=== PATIENT | male | born 1960 | race Hispanic/Latino ===

== ENCOUNTER 2019-08-23 15:14 | Emergency (ER) | payer OTHER ==
[2019-08-23 16:05] LABS: APPEARANCE,URINE Clear (CLEAR); BILIRUBIN,URINE Negative (NEGATIVE); COLOR,URINE Yellow (YELLOW); GLUCOSE, URINE (UA) Negative (NEGATIVE); KETONES,URINE Negative (NEGATIVE); LEUKOCYTE ESTERASE ,URINE Trace (NEGATIVE); NITRATE,URINE Negative (NEGATIVE); OCCULT BLOOD,URINE Negative (NEGATIVE); PROTEIN,URINE POS 2+ mg/dL (NEGATIVE)
[2019-08-23] MEDS ORDERED: METHYLPREDNISOLONE SOD SUCC 40MG/ML 1ML ONE (16:12)
[2019-08-23 16:13] LABS: BACTERIA,URINE Rare /HPF (None Seen); RBC,URINE None Seen /HPF (0-1); SQUAMOUS EPITHELIAL CELL,UR 0-2 /HPF (0-2); WBC,URINE 0-1 /HPF (0-1)
[2019-08-23] MEDS ORDERED: SODIUM CHLORIDE 0.9% 1000ML 1,000 ML IV ONE ×2 (16:13→19:11)
[2019-08-23 16:24] LABS: BASOPHILS % (AUTO) 0.5 % (0.0-5.0); EOSINOPHILS % (AUTO) 1.4 % (0.0-8.0); LYMPHOCYTES % (AUTO) 12.2 % (21.0-51.0); MEAN CORPUSCULAR HEMOGLOBIN 28.5 pg (27.0-33.0); MEAN CORPUSCULAR HGB CONC 33.5 g/dL (32.0-36.0); MONOCYTES % (AUTO) 6.3 % (3.0-13.0); NEUTROPHILS % (AUTO) 79.6 % (40.0-77.0); PLATELET COUNT (AUTO) 302 K/uL (130-400); RED BLOOD CELL COUNT(AUTO) 5.29 MIL/uL (4.50-6.20); RED CELL DISTRIBUTION WIDTH 15.2 % (11.0-15.5); WHITE BLOOD COUNT (AUTO) 13.6 K/uL (4.8-10.8)
[2019-08-23 16:37] LABS: INR 1.04 (0.85-1.15); PARTIAL THROMBOPLASTIN TIME 31.7 SEC (26.3-35.5); PROTHROMBIN TIME 10.9 SEC (9.6-11.6)
[2019-08-23 16:53] LABS: CARBON DIOXIDE 21 mmol/L (21-32); CHLORIDE 103 mmol/L (101-111); CREATININE 1.4 mg/dL (0.5-1.5); GLOMERULAR FILTR. RATE CALC 55 mL/min (>60); GLUCOSE,RANDOM 158 mg/dL (70-105); POTASSIUM 3.4 mmol/L (3.5-5.1); SODIUM SERUM 140 mmol/L (136-145); UREA NITROGEN, BLOOD 16 mg/dL (7-18)
[2019-08-23 17:03] LABS: ALANINE AMINOTRANSFERASE 23 U/L (12-78); ASPARTATE AMINOTRANSFERASE 32 U/L (10-37); BILIRUBIN,TOTAL 0.4 mg/dL (0.2-1.0); CREATINE KINASE, TOTAL 345 U/L (21-232); MYOGLOBIN 102 ng/mL (10-92); TROPONIN I < 0.04 ng/mL (0.00-0.06)
[2019-08-23 21:14] LABS: CREATININE 1.3 mg/dL (0.5-1.5); POTASSIUM 4.4 mmol/L (3.5-5.1)
== END 2019-08-23 21:33 | disposition home or self-care (01) ==
LOC: EDH 15:14
DX: T63.441A Toxic effect of venom of bees, accidental (unintentional), initial encounter (principal); E86.0 Dehydration; Y92.89 Other specified places as the place of occurrence of the external cause
CPT/HCPCS: 36415; 71045; 80048; 80053; 81001; 82550 ×2; 83605 ×3; 83874; 84145; 84484; 85025; 85610; 85730; 87040 ×2; 87088; 87804 ×2; 93005; 96361; 96374; 99285; J2920; J7030 ×2

== ENCOUNTER → 2021-08-25 | Outpatient (CLI) | payer OTHER | END | disposition home or self-care (01) | LOC: SHCH 08:43 | PROVIDERS: ATTEND Internal Medicine Cardiovascular Disease | DX: I08.1 Rheumatic disorders of both mitral and tricuspid valves (principal); G47.33 Obstructive sleep apnea (adult) (pediatric); R55 Syncope and collapse; I70.0 Atherosclerosis of aorta | CPT/HCPCS: 93306 ==

== ENCOUNTER → 2023-06-19 | Outpatient (CLI) | payer OTHER | END | disposition home or self-care (01) | LOC: LAB 15:12 | PROVIDERS: ATTEND Student in an Organized Health Care Education/Training Program | DX: L72.9 Follicular cyst of the skin and subcutaneous tissue, unspecified (principal) | CPT/HCPCS: 87070; 87076; 87205 ==

== ENCOUNTER → 2023-07-30 | Outpatient (CLI) | payer OTHER | END | disposition home or self-care (01) | LOC: LAB 16:36 | PROVIDERS: ATTEND Student in an Organized Health Care Education/Training Program | DX: L02.415 Cutaneous abscess of right lower limb (principal) | CPT/HCPCS: 87070; 87076; 87205 ==

== ENCOUNTER 2023-08-30 07:24 | Day surgery (SDC) | payer OTHER ==
[2023-08-28 11:15] LABS: BASOPHILS # (AUTO) 0.06 K/uL (0.00-0.20); BASOPHILS % (AUTO) 0.7 % (0.0-5.0); EOSINOPHILS # (AUTO) 0.25 K/uL (0.00-0.70); EOSINOPHILS % (AUTO) 2.9 % (0.0-8.0); HEMATOCRIT 44.1 % (42-54); IMMATURE GRANULOCYTE ABSOLUTE 0.04 K/uL (0-1); LYMPHOCYTES # (AUTO) 1.3 K/uL (1.0-4.8); LYMPHOCYTES % (AUTO) 14.5 % (21.0-51.0); MEAN CORPUSCULAR HEMOGLOBIN 27.8 pg (27.0-33.0); MEAN CORPUSCULAR HGB CONC 31.3 g/dL (32.0-36.0); MEAN CORPUSCULAR VOLUME 88.9 fL (79-99); MONOCYTES # (AUTO) 0.6 K/uL (0.1-1.0); MONOCYTES % (AUTO) 6.9 % (3.0-13.0); NEUTROPHILS # (AUTO) 6.5 K/uL (1.8-7.7); NEUTROPHILS % (AUTO) 74.5 % (40.0-77.0); PLATELET COUNT (AUTO) 224 K/uL (130-400); RED BLOOD CELL COUNT(AUTO) 4.96 MIL/uL (4.50-6.20); WHITE BLOOD COUNT (AUTO) 8.7 K/uL (4.8-10.8)
[2023-08-28 11:30] LABS: ALBUMIN 3.5 g/dL (3.5-5.0); CREATININE 1.1 mg/dL (0.5-1.5); POTASSIUM 4.5 mmol/L (3.5-5.1)
[2023-08-28 11:39] VITALS: BP 142/70; PULSE 68; RESP 18
[2023-08-28 12:19] LABS: ERYTHROCYTE SEDIMENTATION RATE 16 MM/HR (0-20)
[~2023-08-30] VITALS: Ht 175.3 cm; Wt 116.0 kg
[2023-08-30] VITALS (18 sets, daily range): BP systolic 87–148; BP diastolic 43–80; PULSE 66–80; RESP 14–18
[~2023-08-30 07:24] MED LIST: ALLO100T PO; LEVO50CA4 PO; LEVO75CA5 PO; LOSA25TA41 PO
[2023-08-30] MEDS ORDERED: CEFAZOLIN SODIUM 2 GM VIAL ONE (08:00)
[2023-08-30] MEDS ORDERED: LACTATED RINGERS 1000ML 1,000 ML IV ONE (08:00)
[2023-08-30] MEDS ORDERED: DEXAMETHASONE SOD PHOSPHATE 10MG/ML 1ML VIAL ONE (08:52)
[2023-08-30] MEDS ORDERED: ONDANSETRON 4MG INJ ONE (08:52)
[2023-08-30] MEDS ORDERED: NEOSTIGMINE 5MG/5ML SYR IV ONE (08:52)
[2023-08-30] MEDS ORDERED: LIDOCAINE PF 100MG/5ML (2%) SYRINGE 5ML ONE (08:52)
[2023-08-30] MEDS ORDERED: GLYCOPYRROLATE 1 MG/5 ML SYRINGE ONE (08:52)
[2023-08-30] MEDS ORDERED: SUCCINYLCHOLINE CHLORIDE 20 MG/ML 10 ML VIAL ONE (08:52)
[2023-08-30] MEDS ORDERED: PROPOFOL 10 MG/ML 20ML VIAL IV ONE ×2 (08:52→09:16)
[2023-08-30] MEDS ORDERED: ROCURONIUM 10MG/1ML SYR 10 MG/ML ML ONE (08:53)
[2023-08-30] MEDS ORDERED: FENTANYL CITRATE PF 50 MCG/1 ML 5ML AMP IV ONE ×2 (08:54→09:57)
[2023-08-30] MEDS ORDERED: CEFAZOLIN SODIUM 2 GM VIAL IVPB ONE (09:26)
[2023-08-30] MEDS ORDERED: BUPIVACAINE/PF 0.5% 30ML VIAL IV ONE (09:33)
[2023-08-30] MEDS ORDERED: EPHEDRINE SULFATE 50 MG/ML AMPULE ONE (09:41)
[2023-08-30] MEDS ORDERED: MIDAZOLAM HCL 1 MG/ML 2ML VIAL ONE (09:56)
[2023-08-30] MEDS ORDERED: BUPIVACAINE/PF 0.5% 30ML VIAL ONE (10:05)
[2023-08-30] MEDS ORDERED: MEPERIDINE-PF 25 MG/ML SYG ONE (10:06)
[2023-08-30] MEDS ORDERED: KETOROLAC 30MG VIAL (30MG/ML) ONE (10:11)
[2023-08-30] MEDS ORDERED: ACET-2079 PO (10:28)
[2023-08-30] MEDS ORDERED: FENTANYL CITRATE PF 50 MCG/1 ML 2ML VIAL ONE (10:45)
[2023-08-30] MEDS ORDERED: MORPHINE 2 MG SYG ONE (10:53)
== END 2023-08-30 12:10 | disposition home or self-care (01) ==
LOC: DAH 07:24
PROVIDERS: ATTEND Student in an Organized Health Care Education/Training Program
DX: L02.415 Cutaneous abscess of right lower limb (principal); T84.59XA Infection and inflammatory reaction due to other internal joint prosthesis, initial encounter; E66.01 Morbid (severe) obesity due to excess calories; E03.9 Hypothyroidism, unspecified; M10.9 Gout, unspecified; E78.5 Hyperlipidemia, unspecified; G47.33 Obstructive sleep apnea (adult) (pediatric); Z79.899 Other long term (current) drug therapy; Z98.890 Other specified postprocedural states; Z90.49 Acquired absence of other specified parts of digestive tract; Z82.49 Family history of ischemic heart disease and other diseases of the circulatory system; Z79.82 Long term (current) use of aspirin; Z68.36 Body mass index [BMI] 36.0-36.9, adult; X58.XXXA Exposure to other specified factors, initial encounter
CPT/HCPCS: 93005; 82040; 80048; 85025; 85651; 84134; 86140; 36415; 11042; 87070 ×2; 87076 ×2; A4663; J7120; J3010 ×3; J3490 ×4; J1100; J2710; J0330; J2270; J2001; J2250; J2704 ×2; J2405; J1885; J2175; J0690 ×2; A4649; A4930 ×2; A4215; A4223; A4222; A4221

== ENCOUNTER → 2023-09-09 | Outpatient (CLI) | payer OTHER ==
[~2023-09-09] MED LIST changes: +ACET-2079 PO; +LIDOCAINE HCL 4% LTA SOL 4 ML VIAL TP ONE
== END | disposition home or self-care (01) ==
LOC: WHH 09:15
PROVIDERS: ATTEND Nurse Practitioner Family
DX: T81.89XA Other complications of procedures, not elsewhere classified, initial encounter (principal); S81.801A Unspecified open wound, right lower leg, initial encounter; L97.112 Non-pressure chronic ulcer of right thigh with fat layer exposed; L02.415 Cutaneous abscess of right lower limb; I10 Essential (primary) hypertension; M10.9 Gout, unspecified; E03.9 Hypothyroidism, unspecified; E78.5 Hyperlipidemia, unspecified; E66.8 Other obesity; Z68.38 Body mass index [BMI] 38.0-38.9, adult; Z90.49 Acquired absence of other specified parts of digestive tract; Z79.899 Other long term (current) drug therapy; X58.XXXA Exposure to other specified factors, initial encounter; Y93.89 Activity, other specified; Y92.89 Other specified places as the place of occurrence of the external cause; Y99.8 Other external cause status; Y83.8 Other surgical procedures as the cause of abnormal reaction of the patient, or of later complication, without mention of misadventure at the time of the procedure
CPT/HCPCS: 87070; G0463; A6248; A4450

== ENCOUNTER → 2023-09-23 | Outpatient (CLI) | payer OTHER | END | disposition home or self-care (01) | LOC: WHH 08:16 | PROVIDERS: ATTEND Nurse Practitioner Family | DX: T81.89XD Other complications of procedures, not elsewhere classified, subsequent encounter (principal); L97.112 Non-pressure chronic ulcer of right thigh with fat layer exposed; L02.415 Cutaneous abscess of right lower limb; S81.801D Unspecified open wound, right lower leg, subsequent encounter; I10 Essential (primary) hypertension; M10.9 Gout, unspecified; E03.9 Hypothyroidism, unspecified; E78.5 Hyperlipidemia, unspecified; E66.8 Other obesity; Z68.38 Body mass index [BMI] 38.0-38.9, adult; Z90.49 Acquired absence of other specified parts of digestive tract; Z79.899 Other long term (current) drug therapy; X58.XXXD Exposure to other specified factors, subsequent encounter; Y83.8 Other surgical procedures as the cause of abnormal reaction of the patient, or of later complication, without mention of misadventure at the time of the procedure | CPT/HCPCS: G0463; A6021; A4450 ==

== ENCOUNTER 2024-02-14 06:10 | Day surgery (SDC) | payer OTHER ==
[2024-02-13 11:55] LABS: BASOPHILS # (AUTO) 0.08 K/uL (0.00-0.20); BASOPHILS % (AUTO) 0.8 % (0.0-5.0); EOSINOPHILS # (AUTO) 0.24 K/uL (0.00-0.70); EOSINOPHILS % (AUTO) 2.5 % (0.0-8.0); HEMATOCRIT 44.3 % (42-54); IMMATURE GRANULOCYTE ABSOLUTE 0.04 K/uL (0-1); LYMPHOCYTES # (AUTO) 1.3 K/uL (1.0-4.8); LYMPHOCYTES % (AUTO) 13.8 % (21.0-51.0); MEAN CORPUSCULAR HEMOGLOBIN 27.8 pg (27.0-33.0); MEAN CORPUSCULAR HGB CONC 32.1 g/dL (32.0-36.0); MEAN CORPUSCULAR VOLUME 86.7 fL (79-99); MONOCYTES # (AUTO) 0.6 K/uL (0.1-1.0); NEUTROPHILS # (AUTO) 7.3 K/uL (1.8-7.7); NEUTROPHILS % (AUTO) 76.5 % (40.0-77.0); PLATELET COUNT (AUTO) 238 K/uL (130-400); RED BLOOD CELL COUNT(AUTO) 5.11 MIL/uL (4.50-6.20); WHITE BLOOD COUNT (AUTO) 9.5 K/uL (4.8-10.8)
[2024-02-13 12:02] LABS: INR 0.96 (0.85-1.15); PROTHROMBIN TIME 11.4 SEC (9.6-11.6)
[2024-02-13 12:04] LABS: PARTIAL THROMBOPLASTIN TIME 32.9 SEC (26.3-35.5)
[2024-02-13 12:07] LABS: ALBUMIN 3.6 g/dL (3.5-5.0); CREATININE 1.1 mg/dL (0.5-1.3); POTASSIUM 4.2 mmol/L (3.5-5.1)
[2024-02-13 12:30] VITALS: BP 147/75; PULSE 64; RESP 18
[2024-02-13 13:25] LABS: ERYTHROCYTE SEDIMENTATION RATE 13 MM/HR (0-20)
[2024-02-14] VITALS (24 sets, daily range): BP systolic 103–145; BP diastolic 51–74; PULSE 64–85; RESP 12–18
[~2024-02-14] VITALS: Ht 175.3 cm; Wt 113.9 kg
[~2024-02-14 06:10] MED LIST changes: -ACET-2079 PO; +AEC81 PO; +ASCO500C18 PO; +CHOL2000 PO; -LIDOCAINE HCL 4% LTA SOL 4 ML VIAL TP ONE; +PRAV40TA3 PO; +ZINC30TA2 PO
[2024-02-14] MEDS ORDERED: SUCCINYLCHOLINE CHLORIDE 20 MG/ML 10 ML VIAL ONE (06:50)
[2024-02-14] MEDS ORDERED: LIDOCAINE PF 100MG/5ML (2%) SYRINGE 5ML ONE (06:50)
[2024-02-14] MEDS ORDERED: ONDANSETRON 4MG INJ ONE ×2 (06:51→07:51)
[2024-02-14] MEDS ORDERED: GLYCOPYRROLATE 0.2 MG/ML 5 ML VIAL ONE (06:51)
[2024-02-14] MEDS ORDERED: DEXAMETHASONE SOD PHOSPHATE 10MG/ML 1ML VIAL ONE (06:51)
[2024-02-14] MEDS ORDERED: NEOSTIGMINE METHYLSULFATE 1MG/ML IV ONE (06:52)
[2024-02-14] MEDS ORDERED: MIDAZOLAM HCL 1 MG/ML 2ML VIAL ONE (06:52)
[2024-02-14] MEDS ORDERED: FENTANYL CITRATE PF 50 MCG/1 ML 2ML VIAL ONE ×4 (06:52→11:20)
[2024-02-14] MEDS ORDERED: ROCURONIUM BROMIDE 10MG/1ML 5ML VL ONE (06:52)
[2024-02-14] MEDS ORDERED: PROPOFOL 10 MG/ML 20ML VIAL IV ONE ×2 (06:52→07:33)
[2024-02-14] MEDS ORDERED: ROPIVACAINE 0.5% 5MG/ML 30ML ONE (06:53)
[2024-02-14] MEDS: LACTATED RINGERS 1000ML 1,000 ML IV ONE (07:00)
[2024-02-14] MEDS ORDERED: TRANEXAMIC ACID 1000MG/10ML ONE (07:11)
[2024-02-14] MEDS: TRANEXAMIC ACID 1000MG/10ML ONE (07:51)
[2024-02-14] MEDS: CEFAZOLIN SODIUM 2 GM VIAL ONE (08:00)
[2024-02-14] MEDS ORDERED: EPHEDRINE SULFATE 50 MG/ML AMPULE ONE (08:25)
[2024-02-14] MEDS ORDERED: DOCU-116 PO (11:41)
[2024-02-14] MEDS ORDERED: HYDR-4060 PO (11:41)
[2024-02-14] MEDS ORDERED: GABA-529 PO (11:41)
[2024-02-14] MEDS ORDERED: LEVO-70 PO (11:41)
[2024-02-14] MEDS ORDERED: ASPI-1012 PO (11:41)
[2024-02-14] MEDS ORDERED: CYCL5TAB PO (11:41)
== END 2024-02-14 16:30 | disposition home or self-care (01) ==
LOC: DAH 06:10
PROVIDERS: ATTEND Student in an Organized Health Care Education/Training Program
DX: T84.84XA Pain due to internal orthopedic prosthetic devices, implants and grafts, initial encounter (principal); Z20.822 Contact with and (suspected) exposure to COVID-19; L02.415 Cutaneous abscess of right lower limb; G47.33 Obstructive sleep apnea (adult) (pediatric); M10.9 Gout, unspecified; E66.01 Morbid (severe) obesity due to excess calories; E03.9 Hypothyroidism, unspecified; E78.5 Hyperlipidemia, unspecified; Z79.82 Long term (current) use of aspirin; Z98.890 Other specified postprocedural states; Z90.49 Acquired absence of other specified parts of digestive tract; Z82.49 Family history of ischemic heart disease and other diseases of the circulatory system; Z79.01 Long term (current) use of anticoagulants; Z79.899 Other long term (current) drug therapy; Z68.36 Body mass index [BMI] 36.0-36.9, adult; Y83.8 Other surgical procedures as the cause of abnormal reaction of the patient, or of later complication, without mention of misadventure at the time of the procedure
CPT/HCPCS: 82040; 80048; 85025; 85610; 85730; 85651; 84134; 86140; 36415; 87641; 64447; 73552; 20680; 87070 ×2; 87076 ×2; 87205 ×2; A4663; J7120 ×2; J3010 ×4; J3490 ×5; J1100; J0330; J2001; J2250; J2704 ×2; J2405 ×2; J2710; J2795; J0690; A6223; A4649 ×3; A4930; A5120; A4215; A4223; A4222; A4221; A6450

== ENCOUNTER 2024-03-12 13:49 | Emergency (ER) | payer OTHER ==
[~2024-03-12] VITALS: Ht 175.3 cm; Wt 116.1 kg
[~2024-03-12 13:49] MED LIST changes: -AEC81 PO; +ASPI-1012 PO; +CYCL5TAB PO; +DOCU-116 PO; +GABA-529 PO; +HYDR-4060 PO; +LEVO-70 PO
[2024-03-12 15:06] LABS: INR 0.96 (0.85-1.15); PROTHROMBIN TIME 11.4 SEC (9.6-11.6)
[2024-03-12 15:08] LABS: PARTIAL THROMBOPLASTIN TIME 34.5 SEC (26.3-35.5)
[2024-03-12 15:16] LABS: CREATININE 1.3 mg/dL (0.5-1.3); POTASSIUM 3.9 mmol/L (3.5-5.1)
[2024-03-12 15:21] LABS: ALBUMIN 3.5 g/dL (3.5-5.0); BILIRUBIN,TOTAL 0.6 mg/dL (0.2-1.0); TOTAL PROTEIN, SERUM 7.8 g/dL (6.0-8.3)
[2024-03-12] MEDS: KETOROLAC 15MG/ML VIAL (15MG/ML) IV ONE (15:23)
[2024-03-12] MEDS: 0.9%NACL 1000ML 1,000 ML IV ONE (15:23)
[2024-03-12 15:35] LABS: APPEARANCE,URINE CLOUDY (CLEAR); BILIRUBIN,URINE NEGATIVE (NEGATIVE); COLOR,URINE BROWN (YELLOW); GLUCOSE, URINE (UA) NEGATIVE (NEGATIVE); KETONES,URINE NEGATIVE (NEGATIVE); LEUKOCYTE ESTERASE ,URINE 75 Leu/uL (NEGATIVE); NITRATE,URINE NEGATIVE (NEGATIVE); OCCULT BLOOD,URINE LARGE (NEGATIVE); PROTEIN,URINE 200 mg/dL (NEGATIVE); UROBILINOGEN,URINE 0.2 mg/dL (0.2-1.0)
[2024-03-12 15:36] LABS: ADD UA MICROSCOPIC YES
[2024-03-12 15:38] LABS: BACTERIA,URINE RARE /HPF (None Seen); MUCUS,URINE RARE LPF (None Seen); RBC,URINE TNTC /HPF (0-1); SQUAMOUS EPITHELIAL CELL,UR RARE /HPF (0-2); UNCLASSIFIED CRYSTAL 6 /HPF (None Seen)
[2024-03-12 15:50] LABS: BASOPHILS # (AUTO) 0.06 K/uL (0.00-0.20); BASOPHILS % (AUTO) 0.4 % (0.0-5.0); EOSINOPHILS # (AUTO) 0.69 K/uL (0.00-0.70); EOSINOPHILS % (AUTO) 5.2 % (0.0-8.0); HEMATOCRIT 38.9 % (42-54); IMMATURE GRANULOCYTE ABSOLUTE 0.06 K/uL (0-1); LYMPHOCYTES # (AUTO) 1.2 K/uL (1.0-4.8); MEAN CORPUSCULAR HEMOGLOBIN 27.7 pg (27.0-33.0); MEAN CORPUSCULAR HGB CONC 32.1 g/dL (32.0-36.0); MEAN CORPUSCULAR VOLUME 86.1 fL (79-99); MONOCYTES % (AUTO) 7.5 % (3.0-13.0); NEUTROPHILS # (AUTO) 10.4 K/uL (1.8-7.7); NEUTROPHILS % (AUTO) 77.5 % (40.0-77.0); PLATELET COUNT (AUTO) 324 K/uL (130-400); RED BLOOD CELL COUNT(AUTO) 4.52 MIL/uL (4.50-6.20); RED CELL DISTRIBUTION WIDTH 13.8 % (11.0-15.5); WHITE BLOOD COUNT (AUTO) 13.4 K/uL (4.8-10.8)
[2024-03-12] MEDS ORDERED: AMOX1TAB16 PO (16:13)
[2024-03-12] MEDS ORDERED: PHEN-847 PO (16:46)
[2024-03-12] MEDS: PHENAZOPYRIDINE HCL 200 MG TABLET PO ONE (17:45)
[2024-03-12] MEDS: AMOX/CLAV 875/125MG TAB PO ONE (17:45)
[2024-03-12 17:51] VITALS: BP 132/60; PULSE 77; RESP 14; O2SAT 98
== END 2024-03-12 17:55 | disposition home or self-care (01) ==
LOC: EDH 13:49
DX: N20.0 Calculus of kidney (principal); N30.01 Acute cystitis with hematuria; N18.9 Chronic kidney disease, unspecified; N13.30 Unspecified hydronephrosis; Z88.5 Allergy status to narcotic agent; Z79.899 Other long term (current) drug therapy
CPT/HCPCS: 99285; 74176; 96374; 96361; 80053; 85025; 85610; 85730; 87088; 81001; 36415; J7030; J1885

== ENCOUNTER 2024-07-31 07:05 | Day surgery (SDC) | payer OTHER ==
[2024-07-29 12:00] LABS: BASOPHILS # (AUTO) 0.06 K/uL (0.00-0.20); BASOPHILS % (AUTO) 0.7 % (0.0-5.0); EOSINOPHILS # (AUTO) 0.38 K/uL (0.00-0.70); EOSINOPHILS % (AUTO) 4.5 % (0.0-8.0); HEMATOCRIT 43.3 % (42-54); IMMATURE GRANULOCYTE ABSOLUTE 0.03 K/uL (0-1); LYMPHOCYTES # (AUTO) 1.4 K/uL (1.0-4.8); LYMPHOCYTES % (AUTO) 16.8 % (21.0-51.0); MEAN CORPUSCULAR HGB CONC 31.2 g/dL (32.0-36.0); MEAN CORPUSCULAR VOLUME 86.6 fL (79-99); MONOCYTES # (AUTO) 0.6 K/uL (0.1-1.0); MONOCYTES % (AUTO) 7.1 % (3.0-13.0); NEUTROPHILS # (AUTO) 5.9 K/uL (1.8-7.7); NEUTROPHILS % (AUTO) 70.5 % (40.0-77.0); PLATELET COUNT (AUTO) 192 K/uL (130-400); RED CELL DISTRIBUTION WIDTH 15.5 % (11.0-15.5); WHITE BLOOD COUNT (AUTO) 8.4 K/uL (4.8-10.8)
[2024-07-29 12:07] LABS: CREATININE 1.1 mg/dL (0.5-1.3); POTASSIUM 5.1 mmol/L (3.5-5.1)
[2024-07-29 12:30] VITALS: BP 156/72; PULSE 68; RESP 16; TEMP 97.9
[~2024-07-31] VITALS: Ht 175.3 cm; Wt 116.7 kg
[2024-07-31] VITALS (14 sets, daily range): BP systolic 111–139; BP diastolic 57–74; PULSE 66–84; RESP 15–18; TEMP 97.5–97.9
[~2024-07-31 07:05] MED LIST changes: +AEC81 PO; -ASPI-1012 PO; +CHOL100046 PO; -CHOL2000 PO; -CYCL5TAB PO; -DOCU-116 PO; -GABA-529 PO; -HYDR-4060 PO; -LEVO-70 PO; +TAMS-1 PO
[2024-07-31] MEDS ORDERED: morPHINE 4 MG SYG ONE (07:42)
[2024-07-31] MEDS ORDERED: acetaMINOPHEN 1,000 MG/100 ML VIAL IV ONE (07:43)
[2024-07-31] MEDS ORDERED: FAMOTIDINE 20MG VIAL IV ONE (07:43)
[2024-07-31] MEDS ORDERED: MIDAZOLAM HCL 1 MG/ML 2ML VIAL ONE (07:44)
[2024-07-31] MEDS ORDERED: LIDOCAINE PF 100MG/5ML (2%) SYRINGE 5ML ONE (07:44)
[2024-07-31] MEDS ORDERED: rocuRONium bROMide 10MG/1ML 5ML VL ONE (07:45)
[2024-07-31] MEDS ORDERED: proPOFol 10 MG/ML 20ML VIAL IV ONE (07:45)
[2024-07-31] MEDS ORDERED: FENTanyl CITRate PF 50 MCG/1 ML 2ML VIAL ONE (07:45)
[2024-07-31] MEDS ORDERED: IOHEXOL-350 50ML VIAL IV ONE (07:51)
[2024-07-31] MEDS: cefTRIAXone 1G VIAL ONE (08:13)
[2024-07-31] MEDS: LACTATED RINGERS 1000ML 1,000 ML IV ONE (08:13)
[2024-07-31] MEDS ORDERED: ONDANSETRON 4MG INJ ONE (08:33)
[2024-07-31] MEDS ORDERED: PHENYLEPHRINE HCL 10 MG/ML 1ML VIAL IV ONE (08:35)
[2024-07-31] MEDS ORDERED: NEOSTIGMINE METHYLSULFATE 1MG/ML IV ONE (08:40)
[2024-07-31] MEDS ORDERED: GLYCOPYRROLATE 0.2 MG/ML 5 ML VIAL ONE (08:40)
[2024-07-31] MEDS ORDERED: SUGAMMADEX SODIUM 200 MG/2 ML VIAL IV ONE (08:46)
[2024-07-31] MEDS: PHENAZOPYRIDINE HCL 200 MG TABLET PO ONE (10:26)
== END 2024-07-31 10:40 | disposition home or self-care (01) ==
LOC: DAH 07:05
PROVIDERS: ATTEND Urology
DX: N13.30 Unspecified hydronephrosis (principal); N40.0 Benign prostatic hyperplasia without lower urinary tract symptoms; J45.909 Unspecified asthma, uncomplicated; I10 Essential (primary) hypertension; E66.01 Morbid (severe) obesity due to excess calories; K21.9 Gastro-esophageal reflux disease without esophagitis; M19.90 Unspecified osteoarthritis, unspecified site; Z90.49 Acquired absence of other specified parts of digestive tract; Z88.8 Allergy status to other drugs, medicaments and biological substances; Z79.899 Other long term (current) drug therapy
CPT/HCPCS: 80048; 85025; 36415; 93005; 52351; 74420; A6260; A4663; J7120 ×2; C1758; J3490 ×2; J3010; J2001; J0696; J2250; J2704; J2405; J2371; Q9967; A4358; A4215; A4223; A4222; A4510; A4221; A4600; J2270; J2710